=== PATIENT | male | born 1965 | race Hispanic/Latino ===

== ENCOUNTER 2016-12-28 09:11 | Emergency (ER) | payer OTHER ==
[2016-12-28 09:16] VITALS: BP 139/83; PULSE 99; TEMP 97; O2SAT 100; BMI 26.9
--- NOTE | 2016-12-28 09:45 | ED PDOC ---
HPI: Trauma/Fall - HPI Time Seen by Provider: 12/28/16 09:37 Chief Complaint (Nursing): Trauma Chief Complaint (Provider): fall History Per: Patient History/Exam Limitations: no limitations Onset/Duration Of Symptoms: Days (x 1) Additional Complaint(s): Ba Young is a 51 year old male, with no previous medical history, who presents to the ED with complaints of right infraorbital pain associated with a mild headache and neck pain which started last night after patient reports tripping and falling on his way to the bathroom. Patient is unsure if he lost consciousness. He denies any dizziness, visual changes, weakness or paresthesia. PMD: none provided Past Medical History Reviewed: Historical Data, Nursing Documentation, Vital Signs Vital Signs: Last Vital Signs Temp 97 F L 12/28/16 09:15 Pulse 99 H 12/28/16 09:15 Resp BP 139/83 12/28/16 09:15 Pulse Ox 100 12/28/16 11:09 - Medical History PMH: No Chronic Diseases - Family History Family History: States: Unknown Family Hx - Allergies Allergies/Adverse Reactions: Allergies Allergy/AdvReac Type Severity Reaction Status Date / Time No Known Allergies Allergy Verified 12/28/16 09:21 Review of Systems ROS Statement: Except As Marked, All Systems Reviewed And Found Negative Eyes: Positive for: Pain (right eye). Negative for: Vision Change Musculoskeletal: Positive for: Neck Pain Neurological: Positive for: Headache. Negative for: Dizziness Physical Exam - Reviewed Nursing Documentation Reviewed: Yes Vital Signs Reviewed: Yes - Physical Exam Appears: Positive for: Well, Non-toxic, No Acute Distress Head Exam: Positive for: NORMAL INSPECTION, NORMOCEPHALIC. Negative for: ATRAUMATIC (superficial abrassion to the right forehead and right eyebrow) Skin: Positive for: Normal Color, Warm, DRY Eye Exam: Positive for: EOMI, PERRL, Periorbital swelling (right infraorbital ) , Periorbital tenderness (right infraorbital ). Negative for: Nystagmus ENT: Positive for: Other (superficial abrassion to the bridge of the nose and chin ) Neck: Positive for: Normal, Painless ROM, Supple. Negative for: Decreased ROM Cardiovascular/Chest: Positive for: Regular Rate, Rhythm Respiratory: Positive for: CNT, Normal Breath Sounds Gastrointestinal/Abdominal: Positive for: Normal Exam, Bowel Sounds, Soft. Negative for: Tenderness Back: Positive for: Normal Inspection. Negative for: L CVA Tenderness, R CVA Tenderness, Vertebral Tenderness, Decreased ROM Extremity: Positive for: Normal ROM. Negative for: Tenderness, Pedal Edema, Calf Tenderness, Deformity, Swelling Neurologic/Psych: Positive for: Alert, Oriented. Negative for: Motor/Sensory Deficits - ECG O2 Sat by Pulse Oximetry: 100 (RA) Pulse Ox Interpretation: Normal Medical Decision Making Medical Decision Making: Initial Plan: * CT cervical spine * CT head w/o contrast * CT maxillofacial w/o contrast * reevaluation Scribe Attestation: Documented by Cesia Mendoza, acting as a scribe for Charly Isbell MD. Discussed with Dr. Palacio. Will see in office now. CT given to pt to bring to office Provider Scribe Attestation: All medical record entries made by the Scribe were at my direction and personally dictated by me. I have reviewed the chart and agree that the record accurately reflects my personal performance of the history, physical exam, medical decision making, and the department course for this patient. I have also personally directed, reviewed, and agree with the discharge instructions and disposition. Disposition - Clinical Impression Clinical Impression: Orbital floor fracture, Nasal bone fracture - Patient ED Disposition Is Patient to be Admitted: No - Disposition Referrals: Juni Palacio DMD [Staff Provider] - Disposition: Routine/Home Disposition Time: 11:02 Condition: FAIR Instructions: Nasal Fracture (ED), Facial Fracture (ED) Forms: [employer] (Kyrgyz)
--- NOTE | 2016-12-28 10:59 | CT ---
PROCEDURE: CT scan of brain 12/28/2016. . HISTORY: r/o bleed COMPARISON: Comparison made with concurrent CT scan maxillofacial skeleton TECHNIQUE: Helical/ transaxial computed tomography images were obtained through the head/brain without intravenous contrast. Radiation dose: Total exam DLP = 892.6 mGy-cm. This CT exam was performed using one or more of the following dose reduction techniques: Automated exposure control, adjustment of the mA and/or kV according to patient size, and/or use of iterative reconstruction technique. FINDINGS: HEMORRHAGE: No acute parenchymal, subarachnoid nor extra-axial hemorrhage. BRAIN: Chronic appearing small of infarct anterior limb right internal capsule region VENTRICLES: No obstructive hydrocephalus. . Incidental note made of small cavum septum pellucidum and vergae. Additionally, bilateral choroid plexus cysts are present. CALVARIUM: No acute calvarial fractures however fracture right orbital floor with overlying for seem a an periorbital/supraorbital and right frontal soft tissue swelling. Swelling extends medially over the bridge of the nose. Right globe appears intact and lenses appropriately located. . Questionable mild mid and right parasagittal superior parietal scalp swelling and or scarring PARANASAL SINUSES: Mild mucosal thickening both maxillary antra multiple ethmoid air cells and sphenoid sinus. Minor mucosal thickening frontal sinus. MASTOID AIR CELLS: Unremarkable as visualized. No inflammatory changes. OTHER FINDINGS: None. IMPRESSION: No acute intracranial hemorrhage. 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 Right-sided orbital floor fracture with surrounding soft tissue swelling and subcutaneous emphysema right orbit. Questionable posterior superior mid and right parasagittal parietal scalp swelling and or scarring. Clinical correlation with physical exam. See above discussion for additional findings and details. Note these findings were discussed with Dr. Isbell at approximately 10:58 a.m. with written down and read back verification.
--- NOTE | 2016-12-28 10:59 | CT ---
PROCEDURE: CT MAXILLOFACIAL BONES WITHOUT CONTRAST HISTORY: trauma COMPARISON: None TECHNIQUE: Contiguous axial CT images of the maxillofacial bones were obtained. Coronal and sagittal reformats were generated. Radiation dose: Total exam DLP = 841 mGy-cm. This CT exam was performed using one or more of the following dose reduction techniques: Automated exposure control, adjustment of the mA and/or kV according to patient size, and/or use of iterative reconstruction technique. FINDINGS: NASAL BONES: Bilateral nasal bone fractures are appreciated without significant displacement. ORBITS: A posterior right orbital floor fractures appreciated with emphysematous changes identified in the preseptal and postseptal soft tissues including the intraconal fat in even including a portion of the proximal optic nerve. Mild exophthalmos appears to result from this emphysematous pattern as well as local soft tissue edema. No definite suspicious fluid collection identified within the postseptal space. The remaining benito of the orbit appear intact without additional fracture including the lamina papyracea. Mild right periorbital soft tissue edema and emphysema is appreciated as well as likely trace hematoma. PARANASAL SINUSES/ MASTOIDS: Mucosal fatty changes in either material is seen in the bilateral maxillary and multiple aunts ethmoid sinuses. The bilateral sphenoid sinuses are mildly effective as well appear underlying polyps or cysts are not excluded affecting the bilateral maxillary sinuses. Rightward bony nasal septal deviation without septal fracture identified. MAXILLA: Unremarkable. MANDIBLE/ TEMPOROMANDIBULAR JOINTS: Unremarkable. SKULL BASE: Unremarkable. TEMPORAL BONES: Middle ears and mastoid grossly unremarkable. OTHER FINDINGS: None. IMPRESSION: A solitary fracture of the posterior right orbital floor is appreciated with emphysematous changes identified in the within the intraconal as well as extraconal and periorbital spaces. Further clinical correlation is advised. [id number] right periorbital soft tissue edema is appreciated with emphysematous changes a least in part causing right exophthalmos. Bilateral nasal bone fractures appear nondisplaced.
--- NOTE | 2016-12-28 11:14 | CT ---
PROCEDURE: CT Cervical Spine without contrast HISTORY: Trauma. COMPARISON: None available. TECHNIQUE: Contiguous helical/transaxial computed tomography images were obtained of the cervical spine without the use of intravenous contrast. Coronal and sagittal reformatted images were created and reviewed. Radiation dose: Total exam DLP = 528.13 mGy-cm. This CT exam was performed using one or more of the following dose reduction techniques: Automated exposure control, adjustment of the mA and/or kV according to patient size, and/or use of iterative reconstruction technique. FINDINGS: VERTEBRAE: No evidence of acute displaced or compression fracture deformities no retropulsed fragments. The vertebral bodies exhibit relatively normal stature. There is straightening of the normal cervical lordosis which could be due to patient positioning gantry however underlying element of muscle spasm may contribute. . There is also a very subtle levoscoliosis pop and/or us side bending/spasm of the head to the right. Vertebral bodies otherwise exhibit normal alignment. Facets normally aligned. DISCS/SPINAL CANAL/NEURAL FORAMINA: Degenerative spondylosis noted at the C6-C7 level. The changes include disc space narrowing with mild endplate eburnation and small broad-based osteophytic ridge disc complex larger on the right than left and contiguous with mildly hypertrophic uncovertebral joints. Changes result in mild flattening of the ventral surface of the thecal sac and spinal cord more so on the right. Central canal is slightly narrowed. Exit foramina are stenotic bilaterally. At the C5-C6 level, there is relatively adequate disc height. Minimal broad-based bulge of the posterior annulus is present. The facets are mildly hypertrophic with minimal degenerative squaring of the uncovertebral joints. There is adequate disc height at the C4-C5 level however the facet joints are hypertrophic, right greater than left with right-sided foraminal stenosis. PARASPINAL SOFT TISSUES: There is tiny amount of air seen in the left parasagittal prevertebral soft tissues which could represent some air within medial aspect left pyriform sinus which is asymmetric compared the right side likely due to some side bending and possibly some residual and or some retained secretion. Direct visualization may be prudent to exclude a mucosal lesion. OTHER FINDINGS: Lung apices are clear. No evidence of apical infiltrate or pneumothorax. IMPRESSION: No acute fracture seen. Mild degenerative spondylosis of C5-C6 level. Tiny amount of air seen within the left parasagittal prevertebral tissues at the level of the thyroid cartilage which could represent tiny amount of air within the medial aspect of the left pyriform sinus which is partially filled with soft tissue that may be in part due to side bending as well as some residual and or retained secretion. Direct visualization could be performed to confirm. .
== END 2016-12-28 11:34 | disposition home or self-care (01) ==
LOC: H.ER 09:11
DX: S02.31XA Fracture of orbital floor, right side, initial encounter for closed fracture (principal); W01.0XXA Fall on same level from slipping, tripping and stumbling without subsequent striking against object, initial encounter; S02.2XXA Fracture of nasal bones, initial encounter for closed fracture